=== PATIENT | male | born 1975 | race African-American/Black ===

== ENCOUNTER 2016-12-29 13:56 | Observation (INO) | payer OTHER ==
[2016-12-29] MEDS ORDERED: MECLIZINE 12.5 MG TAB PO STA (16:00)
[2016-12-29] MEDS ORDERED: LABETALOL SYRINGE 5 MG/ML IVP STA (16:02)
--- NOTE | 2016-12-29 16:09 | ED ---
Dizziness HPI - General Chief Complaint: Dizziness Stated Complaint: Dizzy/Vomiting Time Seen by Provider: 12/29/16 15:43 Source: patient, RN notes reviewed Mode of arrival: wheelchair Limitations: no limitations - History of Present Illness Initial Comments: Patient is a 41-year-old male presents to the emergency room for evaluation of dizziness. Patient states he's been feeling slightly dizzy over the past few days. Patient states today he was on his way to the airport to go to [place] and began feeling increasingly lightheaded and dizzy. Patient states every time he stands up he feels like he is going to fall over. Patient denies any history of dizziness. Patient states he gets occasional chest pain and shortness of breath. Patient denies trouble breathing. Patient denies changes in vision. Patient denies ringing in ears. Patient denies headache. Patient denies neck pain. Patient denies recent head trauma or falls. Patient denies any fevers or chills. Patient does state he is having some sinus congestion. Patient denies abdominal pain. Patient states that he feels nauseous when he is dizzy. Patient denies current nausea. Patient also states he has a history of high blood pressure. Patient states he does not take his blood pressure medication every day. - Related Data Home Medications Medication Instructions Recorded Confirmed No Known Home Medications [No 12/29/16 12/29/16 Known Home Medications] Allergies Allergy/AdvReac Type Severity Reaction Status Date / Time No Known Allergies Allergy Verified 12/29/16 16:49 Review of Systems ROS Statement: Those systems with pertinent positive or pertinent negative responses have been documented in the HPI. ROS Other: All systems not noted in ROS Statement are negative. Past Medical History Past Medical History: Hypertension Additional Past Medical History / Comment(s): back pain History of Any Multi-Drug Resistant Organisms: None Reported Past Surgical History: No Surgical Hx Reported Past Psychological History: No Psychological Hx Reported Smoking Status: Current every day smoker Past Alcohol Use History: None Reported Past Drug Use History: Marijuana General Exam - General Exam Comments Initial Comments: Sitting in exam room in no acute distress. Limitations: no limitations General appearance: alert, in no apparent distress Head exam: Present: atraumatic, normocephalic, normal inspection Eye exam: Present: normal appearance ENT exam: Present: normal exam Neck exam: Present: normal inspection Respiratory exam: Present: normal lung sounds bilaterally. Absent: respiratory distress Cardiovascular Exam: Present: regular rate, normal rhythm, normal heart sounds Extremities exam: Present: normal inspection, full ROM, normal capillary refill Back exam: Present: normal inspection Neurological exam: Present: alert, oriented X3, CN II-XII intact, normal gait Psychiatric exam: Present: normal affect, normal mood Skin exam: Present: warm, dry, intact, normal color. Absent: rash Course Vital Signs 12/29/16 12/29/16 12/29/16 14:17 17:03 17:16 Temperature 98.1 F Pulse Rate 90 83 Pulse Rate [ 88 Sitting] Pulse Rate [ 96 Standing] Pulse Rate [ 93 Supine] Respiratory 20 16 Rate Blood Pressure 178/113 169/89 Blood Pressure 186/103 [Sitting] Blood Pressure 229/116 [Standing] Blood Pressure 192/98 [Supine] O2 Sat by Pulse 98 97 Oximetry 12/29/16 12/29/16 17:55 18:23 Temperature Pulse Rate 82 91 Pulse Rate [ Sitting] Pulse Rate [ Standing] Pulse Rate [ Supine] Respiratory 16 15 Rate Blood Pressure 192/82 190/95 Blood Pressure [Sitting] Blood Pressure [Standing] Blood Pressure [Supine] O2 Sat by Pulse 100 98 Oximetry EKG Findings - EKG Comments: EKG Findings:: Normal sinus rhythm, ventricular rate 81 bpm, OH interval 174 ms , QRS duration 90 ms, QT/QTc 384/446, septal infarct Medical Decision Making - Medical Decision Making Patient is a 41-year-old male presents to emergency room for evaluation of dizziness and hypertension. EKG shows changes from EKG on 09/03/2014. EKG shows evidence for possible septal infarct, age undetermined. Initial troponin negative. Patient will be admitted for further evaluation and serial troponins. Patient started on heparin. Case discussed with Dr. Rivera. Dr. Rivera discussed case with Jennifer LAWLER Pharmaceutical Worker who agreed to admit for Dr. Philippe. Patient will also have consult with cardiology. - Lab Data Result diagrams: 12/29/16 16:52 12/29/16 16:52 Lab Results 12/29/16 12/29/16 12/29/16 Range/Units 16:43 16:52 16:52 WBC 6.9 (3.8-10.6) k/uL RBC 5.15 (4.30-5.90) m/uL Hgb 14.9 (13.0-17.5) gm/dL Hct 46.0 (39.0-53.0) % MCV 89.3 (80.0-100.0) fL MCH 29.0 (25.0-35.0) pg MCHC 32.4 (31.0-37.0) g/dL RDW 13.0 (11.5-15.5) % Plt Count 220 (150-450) k/uL Neutrophils % 67 % Lymphocytes % 26 % Monocytes % 4 % Eosinophils % 1 % Basophils % 0 % Neutrophils # 4.6 (1.3-7.7) k/uL Lymphocytes # 1.8 (1.0-4.8) k/uL Monocytes # 0.3 (0-1.0) k/uL Eosinophils # 0.0 (0-0.7) k/uL Basophils # 0.0 (0-0.2) k/uL PT (9.0-12.0) sec INR (<1.1) APTT (22.0-30.0) sec Sodium 144 (137-145) mmol/L Potassium 4.3 (3.5-5.1) mmol/L Chloride 104 (98-107) mmol/L Carbon Dioxide 27 (22-30) mmol/L Anion Gap 13 mmol/L BUN 13 (9-20) mg/dL Creatinine 0.90 (0.66-1.25) mg/dL Est GFR (MDRD) Af Amer >60 (>60 ml/min/1.73 sqM) Est GFR (MDRD) Non-Af >60 (>60 ml/min/1.73 sqM) Glucose 125 H (74-99) mg/dL POC Glucose (mg/dL) 125 H (75-99) mg/dL POC Glu Proposal Specialist ID [place] Calcium 9.4 (8.4-10.2) mg/dL Total Bilirubin 0.6 (0.2-1.3) mg/dL AST 33 (17-59) U/L ALT 45 (21-72) U/L Alkaline Phosphatase 90 (38-126) U/L Total Creatine Kinase (55-170) U/L CK-MB (CK-2) (0.0-2.4) ng/mL CK-MB (CK-2) Rel Index Troponin I (0.000-0.034) ng/mL Total Protein 8.7 H (6.3-8.2) g/dL Albumin 4.2 (3.5-5.0) g/dL Urine Color Urine Appearance (Clear) Urine pH (5.0-8.0) Ur Specific [place] (1.001-1.035) Urine Protein (Negative) Urine Glucose (UA) (Negative) Urine Ketones (Negative) Urine Blood (Negative) Urine Nitrate (Negative) Urine Bilirubin (Negative) Urine Urobilinogen (<2.0) mg/dL Ur Leukocyte Esterase (Negative) Urine RBC (0-5) /hpf Urine WBC (0-5) /hpf Urine Mucus (None) /hpf 12/29/16 12/29/16 12/29/16 Range/Units 16:52 16:52 18:21 WBC (3.8-10.6) k/uL RBC (4.30-5.90) m/uL Hgb (13.0-17.5) gm/dL Hct (39.0-53.0) % MCV (80.0-100.0) fL MCH (25.0-35.0) pg MCHC (31.0-37.0) g/dL RDW (11.5-15.5) % Plt Count (150-450) k/uL Neutrophils % % Lymphocytes % % Monocytes % % Eosinophils % % Basophils % % Neutrophils # (1.3-7.7) k/uL Lymphocytes # (1.0-4.8) k/uL Monocytes # (0-1.0) k/uL Eosinophils # (0-0.7) k/uL Basophils # (0-0.2) k/uL PT 10.3 (9.0-12.0) sec INR 1.0 (<1.1) APTT (22.0-30.0) sec Sodium (137-145) mmol/L Potassium (3.5-5.1) mmol/L Chloride (98-107) mmol/L Carbon Dioxide (22-30) mmol/L Anion Gap mmol/L BUN (9-20) mg/dL Creatinine (0.66-1.25) mg/dL Est GFR (MDRD) Af Amer (>60 ml/min/1.73 sqM) Est GFR (MDRD) Non-Af (>60 ml/min/1.73 sqM) Glucose (74-99) mg/dL POC Glucose (mg/dL) (75-99) mg/dL POC Glu Proposal Specialist ID Calcium (8.4-10.2) mg/dL Total Bilirubin (0.2-1.3) mg/dL AST (17-59) U/L ALT (21-72) U/L Alkaline Phosphatase (38-126) U/L Total Creatine Kinase 526 H (55-170) U/L CK-MB (CK-2) 2.5 H* (0.0-2.4) ng/mL CK-MB (CK-2) Rel Index 0.5 Troponin I <0.012 (0.000-0.034) ng/mL Total Protein (6.3-8.2) g/dL Albumin (3.5-5.0) g/dL Urine Color Yellow Urine Appearance Clear (Clear) Urine pH 6.5 (5.0-8.0) Ur Specific [place] 1.017 (1.001-1.035) Urine Protein 1+ H (Negative) Urine Glucose (UA) Negative (Negative) Urine Ketones Negative (Negative) Urine Blood Negative (Negative) Urine Nitrate Negative (Negative) Urine Bilirubin Negative (Negative) Urine Urobilinogen <2.0 (<2.0) mg/dL Ur Leukocyte Esterase Negative (Negative) Urine RBC 1 (0-5) /hpf Urine WBC 1 (0-5) /hpf Urine Mucus Rare H (None) /hpf 12/29/16 12/29/16 Range/Units 18:26 18:30 WBC (3.8-10.6) k/uL RBC (4.30-5.90) m/uL Hgb (13.0-17.5) gm/dL Hct (39.0-53.0) % MCV (80.0-100.0) fL MCH (25.0-35.0) pg MCHC (31.0-37.0) g/dL RDW (11.5-15.5) % Plt Count (150-450) k/uL Neutrophils % % Lymphocytes % % Monocytes % % Eosinophils % % Basophils % % Neutrophils # (1.3-7.7) k/uL Lymphocytes # (1.0-4.8) k/uL Monocytes # (0-1.0) k/uL Eosinophils # (0-0.7) k/uL Basophils # (0-0.2) k/uL PT (9.0-12.0) sec INR (<1.1) APTT 22.4 (22.0-30.0) sec Sodium (137-145) mmol/L Potassium (3.5-5.1) mmol/L Chloride (98-107) mmol/L Carbon Dioxide (22-30) mmol/L Anion Gap mmol/L BUN (9-20) mg/dL Creatinine (0.66-1.25) mg/dL Est GFR (MDRD) Af Amer (>60 ml/min/1.73 sqM) Est GFR (MDRD) Non-Af (>60 ml/min/1.73 sqM) Glucose (74-99) mg/dL POC Glucose (mg/dL) (75-99) mg/dL POC Glu Proposal Specialist ID Calcium (8.4-10.2) mg/dL Total Bilirubin (0.2-1.3) mg/dL AST (17-59) U/L ALT (21-72) U/L Alkaline Phosphatase (38-126) U/L Total Creatine Kinase 540 H (55-170) U/L CK-MB (CK-2) 3.0 H* (0.0-2.4) ng/mL CK-MB (CK-2) Rel Index 0.6 Troponin I <0.012 (0.000-0.034) ng/mL Total Protein (6.3-8.2) g/dL Albumin (3.5-5.0) g/dL Urine Color Urine Appearance (Clear) Urine pH (5.0-8.0) Ur Specific [place] (1.001-1.035) Urine Protein (Negative) Urine Glucose (UA) (Negative) Urine Ketones (Negative) Urine Blood (Negative) Urine Nitrate (Negative) Urine Bilirubin (Negative) Urine Urobilinogen (<2.0) mg/dL Ur Leukocyte Esterase (Negative) Urine RBC (0-5) /hpf Urine WBC (0-5) /hpf Urine Mucus (None) /hpf Disposition Clinical Impression: Dizziness, Acute electrocardiogram changes, Uncontrolled hypertension Disposition: ADMITTED IP TO THIS [facility] Condition: Stable Decision Date: 12/29/16
[2016-12-29 16:44] LABS: Glucose,Whole Blood 125 mg/dL (75-99)
[2016-12-29] MEDS ORDERED: hydrALAZINE HCL 20 MG/ML 1 ML VIAL IVP STA (17:02)
[2016-12-29 17:05] LABS: Basophils % (A) 0 %; CH 29.7; CHCM 33.5; Eosinophils % (A) 1 %; HDW 2.59; HGB 14.9 gm/dL (13.0-17.5); Luc # (Auto) 0.22; Luc % (Auto) 3; Lymphocytes # (A) 1.8 k/uL (1.0-4.8); Lymphocytes % (A) 26 %; MCHC 32.4 g/dL (31.0-37.0); MCV 89.3 fL (80.0-100.0); Mean Platelet Volume 7.5; Monocytes # (A) 0.3 k/uL (0-1.0); Monocytes % (A) 4 %; Neutrophils # (A) 4.6 k/uL (1.3-7.7); Neutrophils % (A) 67 %; RBC 5.15 m/uL (4.30-5.90); WBC 6.9 k/uL (3.8-10.6); WBC (Perox) 6.59
[2016-12-29 17:08] LABS: Prothrombin Time 10.3 sec (9.0-12.0)
[2016-12-29 17:10] LABS: ALT 45 U/L (21-72); AST 33 U/L (17-59); Alkaline Phosphatase 90 U/L (38-126); Anion Gap 13 mmol/L; Blood Urea Nitrogen 13 mg/dL (9-20); Calcium 9.4 mg/dL (8.4-10.2); Carbon Dioxide 27 mmol/L (22-30); Chloride 104 mmol/L (98-107); Glucose 125 mg/dL (74-99); Non-African American GFR(MDRD) >60 (>60 ml/min/1.73 sqM); Potassium 4.3 mmol/L (3.5-5.1); Sodium 144 mmol/L (137-145); Total Bilirubin 0.6 mg/dL (0.2-1.3); Total Protein 8.7 g/dL (6.3-8.2)
[2016-12-29 17:28] LABS: Creatine Kinase 526 U/L (55-170)
[2016-12-29 17:41] LABS: Troponin I <0.012 ng/mL (0.000-0.034)
[2016-12-29 17:49] LABS: Creatine Kinase MB 2.5 ng/mL (0.0-2.4)
[2016-12-29] MEDS ORDERED: HEPARIN SODIUM,PORCINE 5,000 UNIT/ML 1 ML VIAL IV ONE (18:10)
[2016-12-29] MEDS ORDERED: NITROGLYCERIN SL TABS 0.4 MG TAB SUBLINGUAL PRN (18:10)
[2016-12-29] MEDS ORDERED: ACETAMINOPHEN TAB 325 MG TAB PO PRN (18:10)
[2016-12-29] MEDS ORDERED: MORPHINE SULFATE 4 MG/ML SYRINGE IV PRN (18:10)
[2016-12-29] MEDS ORDERED: HEPARIN SODIUM,PORCINE/D5W PMX 25,000 UNIT in DEXTROSE/WATER 1 500ML.BAG IV SCH (18:15)
[2016-12-29 18:38] LABS: Appearance,Urine Clear (Clear); Bilirubin,Urine Negative (Negative); Glucose,Urine (UA) Negative (Negative); Ketones,Urine Negative (Negative); Leukocyte Esterase,Urine Negative (Negative); Mucus,Urine Rare /hpf; Nitrite,Urine Negative (Negative); PH, Urine 6.5 (5.0-8.0); Particle Count 1136; Protein,Urine 1+ (Negative); RBC,Urine 1 /hpf (0-5); Specific Gravity,Urine 1.017 (1.001-1.035); UA Billing (MACRO vs. MICRO) MICRO; Urobilinogen,Urine <2.0 mg/dL (<2.0); WBC,Urine 1 /hpf (0-5)
[2016-12-29 18:59] LABS: Creatine Kinase 540 U/L (55-170)
[2016-12-29 19:13] LABS: Troponin I <0.012 ng/mL (0.000-0.034)
[2016-12-29] MEDS ORDERED: LORazepam 2 MG/ML SYRINGE IV STA (19:23)
--- NOTE | 2016-12-29 19:52 | XR ---
EXAMINATION TYPE: XR chest 2V DATE OF EXAM: 12/29/2016 7:49 PM COMPARISON: 04/16/2015 HISTORY: Dizziness and nausea TECHNIQUE: Frontal and lateral views of the chest are obtained. FINDINGS: Heart and mediastinum are normal. Lungs are clear of consolidation. There are no hilar mas ses. Costophrenic angles are clear. There are chest leads. Bony thorax is intact. IMPRESSION: No active cardiopulmonary disease. No change.
[2016-12-29] MEDS ORDERED: ENALAPRILAT 1.25 MG/ML 1 ML VIAL IVP STA (22:37)
[2016-12-29] MEDS: ENALAPRILAT 1.25 MG/ML 1 ML VIAL IVP PRN (22:43)
[2016-12-30 00:37] VITALS: BMI 45.3
[2016-12-30 00:54] LABS: Creatine Kinase 538 U/L (55-170)
[2016-12-30 01:08] LABS: Troponin I <0.012 ng/mL (0.000-0.034)
[2016-12-30 01:09] LABS: Creatine Kinase MB 4.8 ng/mL (0.0-2.4)
[2016-12-30] MEDS ORDERED: HEPARIN SODIUM,PORCINE 5,000 UNIT/ML 1 ML VIAL IV PRN (01:32)
[2016-12-30] MEDS: ENALAPRILAT 1.25 MG/ML 1 ML VIAL IVP PRN (04:25)
[2016-12-30 06:24] LABS: Mean Platelet Volume 7.4
[2016-12-30 06:45] LABS: Cholesterol 135 mg/dL (<200); HDL Cholesterol 39 mg/dL (40-60); Triglycerides 116 mg/dL (<150)
[2016-12-30] MEDS ORDERED: ASPIRIN 325 MG TAB PO SCH (09:00)
[2016-12-30] MEDS ORDERED: ATENOLOL 50 MG TAB PO SCH (10:00)
[2016-12-30] MEDS ORDERED: amLODIPine 5 MG TAB PO SCH (10:00)
--- NOTE | 2016-12-30 10:31 | CONS ---
DATE OF CONSULTATION: CHIEF COMPLAINT: Dizziness and uncontrolled hypertension. HISTORY OF PRESENT ILLNESS: Glen is a 41-year-old gentleman with history of hypertension, who has not been taking any medications due to lack of insurance and comes in complaining of dizziness and severe uncontrolled hypertension. He had ST-T wave changes on the EKG primarily secondary to uncontrolled hypertension. Since being admitted he is doing well and ruled out for myocardial infarction. At the time of my evaluation this morning, patient is much better and is eager to go home. Past medical history is significant for hypertension. MEDICATIONS: None. ALLERGIES: None. Family history is negative for premature coronary artery disease. SOCIAL HISTORY: Significant for smoking. There is no history of ETOH abuse, or drug abuse. REVIEW OF SYSTEMS: HEENT: Unremarkable. CARDIAC: As described above. RESPIRATORY: Negative. GI: Negative. ALLERGY/IMMUNOLOGY: Negative. GENITOURINARY: Negative. SKIN: Negative. MUSCULOSKELETAL: Negative. ENDOCRINE: Negative. DERM: Negative. CONSTITUTIONAL: Negative. The rest of the system review is not relevant. On exam, comfortable at rest. Afebrile. Heart rate is 90 beats per minute, blood pressure is 178/94, respiratory rate is 18. There is no jugular venous distention. Carotid upstroke is normal. There is no bruit. Chest is clear to auscultation and percussion. Heart exam reveals first and second heart sounds. An S4 is heard. ABDOMEN: Soft. Exam of the extremities did not reveal edema. Peripheral pulses are felt. EKG shows sinus rhythm with nonspecific ST-T wave changes. Three sets of cardiac enzymes are negative. Hemoglobin is 14.9, platelet count is 220, creatinine is 0.9. Potassium is 4.3. ASSESSMENT: 1. Severe uncontrolled hypertension. 2. Dizziness. 3. Abnormal EKG. PLAN: The patient is doing well and we will do an echocardiogram on him, start him on Tenormin 50 mg daily, Norvasc 10 mg daily and if necessary on Lisinopril 10 mg daily. We will ambulate him and we should be able to discharge him home today and I can optimize his antihypertensives as outpatient.
[2016-12-30 11:02] VITALS: BP 141/7; PULSE 81; RESP 16; TEMP 97.9
--- NOTE | 2016-12-30 12:00 | ECHOF ---
Referral Reason:ekg changes MEASUREMENTS -------- HEIGHT: 193.0 cm WEIGHT: 169.2 kg BP: 178/94 RVIDd: 3.1 cm (< 3.3) IVSd: 1.4 cm (0.6 - 1.1) LVIDd: 5.4 cm (3.9 - 5.3) LVPWd: 1.5 cm (0.6 - 1.1) IVSs: 2.4 cm LVIDs: 3.3 cm LVPWs: 2.1 cm LA Diam: 3.3 cm (2.7 - 3.8) LAESV Index (A-L): 20.39 ml/m Ao Diam: 3.5 cm (2.0 - 3.7) AV Cusp: 2.4 cm (1.5 - 2.6) LA Diam: 3.2 cm (2.7 - 3.8) MV EXCURSION: 17.180 mm (> 18.000) MV EF SLOPE: 106 mm/s (70 - 150) EPSS: 0.3 cm MV E Americo: 0.63 m/s MV DecT: 142 ms MV A Americo: 0.94 m/s MV E/A Ratio: 0.67 FINDINGS -------- Sinus rhythm. This was a technically good study. There is moderate concentric left ventricular hypertrophy. Overall left ventricular systolic function is low-normal with, an EF between 50 - 55 %. Basal inferior LV wall motion is hypokinetic. Basal inferoseptal LV wall motion is hypokinetic. The right ventricle is normal in size. Normal LA size by volume 22+/-6 ml/m2. The right atrium is normal in size. The aortic valve is trileaflet and appears structurally normal. The mitral valve leaflets are mildly thickened. Mild mitral annular calcification present. Trace tricuspid regurgitation present. Pulmonic valve appears structurally normal. The aortic root size is normal. The inferior vena cava is mildly dilated. There is no pericardial effusion. CONCLUSIONS -------- 1. Sinus rhythm. 2. The aortic valve is trileaflet and appears structurally normal. 3. The mitral valve leaflets are mildly thickened. 4. Mild mitral annular calcification present. 5. Trace tricuspid regurgitation present. 6. Pulmonic valve appears structurally normal. 7. The aortic root size is normal. 8. The inferior vena cava is mildly dilated. 9. There is no pericardial effusion. 10. This was a technically good study. 11. There is moderate concentric left ventricular hypertrophy. 12. Overall left ventricular systolic function is low-normal with, an EF between 50 - 55 %. 13. Basal inferior LV wall motion is hypokinetic. 14. Basal inferoseptal LV wall motion is hypokinetic. 15. The right ventricle is normal in size. 16. Normal LA size by volume 22+/-6 ml/m2. 17. The right atrium is normal in size. TRACK EQUIPMENT OPERATOR: Jeyson Almaraz RDCS
--- NOTE | 2016-12-30 13:47 | HP ---
DATE OF ADMISSION: 12/29/2016 CHIEF COMPLAINT: Dizziness as well as hypertension. HISTORY OF PRESENT ILLNESS: This 41-year-old gentleman with a past medical history of multiple medical problems including hypertension, history of back pain, history of DJD, history of nicotine dependence, history of THC not being followed by any primary care physician in the outpatient setting was complaining of severe dizziness. The patient apparently uses Q-tips in the ear and the patient was severe dizzy yesterday and came to [facility] and admitted for further evaluation and treatment. The patient apparently was on his way to the airport to go to [place]. The patient was feeling some lightheaded also. The blood pressure was found to be elevated on admission up to 178/113 and 129/116. There is no history of fever, rigors or chills. No history of headache, loss of consciousness or seizures. CTA changes also noted. PAST MEDICAL HISTORY: History of hypertension, history of back pain, degenerative joint disease. Medications prior to admission include: None. ALLERGIES: None. FAMILY HISTORY: History of breast cancer in the family. SOCIAL HISTORY: Previous history of smoking. History of THC. REVIEW OF SYSTEMS: ENT: Mentioned earlier. CARDIOVASCULAR: no angina or palpitations. RESPIRATORY: No cough. GI: As mentioned earlier. : No dysuria. Nervous system: No numbness or weakness. ALLERGY/IMMUNOLOGY: No asthma or hayfever. MUSCULOSKELETAL: As mentioned earlier. Hematology/oncology: No history of anemia. ENDOCRINE: No history of diabetes mellitus or hypothyroidism. CONSTITUTIONAL: As mentioned earlier. DERMATOLOGY: Negative. Rheumatology: Negative. PSYCHIATRY: As mentioned earlier. PHYSICAL EXAMINATION: The patient is alert and oriented x3. Pulse is 88, blood pressure on admission was 229/116, respirations 18, temperature 98.1, pulse ox 98% on room air. HEENT: Conjunctivae normal. Oral mucosa moist. NECK: No jugular venous distention. No carotid bruit. No lymph node enlargement. CARDIOVASCULAR: S1, S2 muffled. No S3, no S4. RESPIRATORY: Breath sounds diminished at the bases. A few scattered rhonchi, no crackles. Bronchial breath sounds. ABDOMEN: Soft, nontender. No mass palpable. Legs: No edema. No swelling. CENTRAL NERVOUS SYSTEM: Higher functions as mentioned earlier. Moves all 4 limbs. No focal motor or sensory deficits. LYMPHATICS: No lymph nodes palpable in the neck, axillae or groin. SKIN: No ulcer, rash or bleeding. LABS: Glucose 125, CK 526 and HDL is 39, urine proteins 1+. ASSESSMENT: 1. Dizziness for evaluation possibly BPV. 2. Accelerated hypertension, uncontrolled hypertension. 3. Increased creatinine kinase with mild rhabdomyolysis. 4. Increased random blood sugar. 5. Obesity with a body mass index of 45.4. 6. History of back pain and degenerative joint disease. 7. History of nicotine dependence. 8. History of THC. RECOMMENDATIONS AND DISCUSSION: In this 41-year-old gentleman who presented with multiple complex medical issues, we will ( ), we will obtain cardiology consultation, rule out myocardial infarction, symptomatic treatment, monitor blood pressure closely, possible stress test as an outpatient. Guarded prognosis because of multiple complex medical issues. Discussed with the patient who understands and agrees. Further recommendations to follow.
[2016-12-31] MEDS ORDERED: ASPIRIN 81 MG CHEW PO SCH (09:00)
--- NOTE | 2016-12-31 09:05 | DS ---
DATE OF ADMISSION: 12/29/2016 DATE OF DISCHARGE: 12/30/2016 FINAL DIAGNOSES: 1. Accelerated hypertension improved. 2. Dizziness improved. 3. Increased CT with mild rhabdomyolysis. 4. Increased random blood sugar. 5. BMI 45.4 obesity. 6. History of hypertension. 7. History of back pain degenerative joint disease. 8. History of nicotine dependence. 9. History of THC. DISCHARGE DISPOSITION: The patient will be discharged in stable condition with guarded prognosis. Cardiology cleared the patient for discharge. HISTORY OF PRESENT ILLNESS: This 41-year-old gentleman with a past medical history of multiple medical problems admitted with dizziness, hypertension and multiple medical issues. Treated symptomatically. Cardiology saw the patient. Recommended outpatient follow-up. On exam vital signs are stable. CARDIOVASCULAR: S1, S2. ABDOMEN: Soft. Nervous system: No focal deficits. The patient is extremely keen on going home as well. DISCHARGE ADVICE AND MEDICATIONS: 1. Diet is cardiac. No added salt. 2. Activity limited until follow-up. 3. Follow-up with Dr. Saunders 2 to 3 days. 4. Follow-up with Dr. Mata as advised and for possible outpatient stress test. 5. Ecotrin 81 mg p.o. daily. 6. Tenormin 50 mg p.o. daily. 7. Norvasc 5 mg p.o. daily.
== END 2016-12-30 13:15 | disposition home or self-care (01) ==
LOC: EC 13:56 → INTOOBSV 17:21 → 6SEL 17:21
PROVIDERS: ADMIT Hospitalist; ATTEND Hospitalist
DX: I10 Essential (primary) hypertension (principal); M62.82 Rhabdomyolysis; E66.9 Obesity, unspecified; F17.200 Nicotine dependence, unspecified, uncomplicated; M19.90 Unspecified osteoarthritis, unspecified site; R73.9 Hyperglycemia, unspecified; R09.81 Nasal congestion; Z68.42 Body mass index [BMI] 45.0-49.9, adult; Z59.6 Low income; R94.31 Abnormal electrocardiogram [ECG] [EKG]
CPT/HCPCS: 99285; 96376; 96365; 96366; 96375; 36415; 93005; 93306; 80061; 80053; 82550 ×2; 82553 ×2; 84484 ×2; 85025; 85049; 85610; 85730 ×2; 81001; 71020; G0378 ×2; J2060; J0360; J1644 ×2

== ENCOUNTER 2017-05-05 03:51 | Emergency (ER) | payer OTHER ==
--- NOTE | 2017-05-05 04:15 | ED ---
Extremity Problem HPI - General Chief complaint: Extremity Problem,Nontraumatic Stated complaint: Swelling in the Feet/legs Time Seen by Provider: 05/05/17 04:00 Source: patient, RN notes reviewed Mode of arrival: ambulatory Limitations: no limitations - History of Present Illness Initial comments: Is a 41-year-old male with a history of hypertension and evaluation for EKG changes presents with complaints of 1-2 weeks bilateral lower extremity swelling and some discomfort. States is been up his been down he's had different medications he recently had his hydrochlorothiazide dose increased. He denies any shortness of breath chest pain fevers chills sweats or other symptoms. He does relate the problems not starting until he started the medications he is currently on. MD Complaint: extremity swelling - Related Data Previous Rx's Medication Instructions Recorded Aspirin 81 mg PO DAILY chew 12/30/16 Atenolol [Tenormin] 50 mg PO DAILY #30 tab 12/30/16 Meclizine [Antivert] 12.5 mg PO Q8HR PRN #10 tablet 12/30/16 Furosemide [Lasix] 20 mg PO DAILY #7 tab 05/05/17 Allergies Allergy/AdvReac Type Severity Reaction Status Date / Time No Known Allergies Allergy Verified 05/05/17 04:10 Review of Systems ROS Statement: Those systems with pertinent positive or pertinent negative responses have been documented in the HPI. ROS Other: All systems not noted in ROS Statement are negative. Past Medical History Past Medical History: Hypertension Additional Past Medical History / Comment(s): back pain - chronic pain, bulging discs History of Any Multi-Drug Resistant Organisms: None Reported Past Surgical History: No Surgical Hx Reported Past Psychological History: No Psychological Hx Reported Smoking Status: Former smoker Past Alcohol Use History: None Reported Past Drug Use History: Marijuana - Past Family History Mother Family Medical History: Cancer Additional Family Medical History / Comment(s): breast Father Family Medical History: Cancer Additional Family Medical History / Comment(s): lung General Exam - General Exam Comments Initial Comments: This is a well-developed well-nourished awake alert oriented 3 male Limitations: no limitations General appearance: alert, in no apparent distress Head exam: Present: atraumatic, normocephalic, normal inspection Eye exam: Present: normal appearance, PERRL, EOMI. Absent: scleral icterus, conjunctival injection, periorbital swelling ENT exam: Present: normal exam, mucous membranes moist Neck exam: Present: normal inspection. Absent: tenderness, meningismus, lymphadenopathy Respiratory exam: Present: normal lung sounds bilaterally. Absent: respiratory distress, wheezes, rales, rhonchi, stridor Cardiovascular Exam: Present: regular rate, normal rhythm, normal heart sounds. Absent: systolic murmur, diastolic murmur, rubs, gallop, clicks GI/Abdominal exam: Present: soft, normal bowel sounds. Absent: distended, tenderness, guarding, rebound, rigid Extremities exam: Present: normal inspection, full ROM, normal capillary refill , pedal edema (Bilateral pedal edema up to the knees no palpable cords or calf tenderness). Absent: tenderness, joint swelling, calf tenderness Back exam: Present: normal inspection Neurological exam: Present: alert, oriented X3, CN II-XII intact Psychiatric exam: Present: normal affect, normal mood Skin exam: Present: warm, dry, intact, normal color. Absent: rash Course Vital Signs 05/05/17 04:00 Temperature 97.8 F Pulse Rate 88 Respiratory 20 Rate Blood Pressure 170/96 O2 Sat by Pulse 96 Oximetry Medical Decision Making - Medical Decision Making I did discuss the findings with the patient he is been on the higher dose of hydrochlorothiazide for month and neutrophils without much improvement. After discussion with the patient we will try switching to Lasix for about a week to see how that works is a follow-up with Dr. Mcintosh and return when necessary - Lab Data Result diagrams: 05/05/17 04:30 05/05/17 04:30 Lab Results 05/05/17 05/05/17 05/05/17 Range/Units 04:30 04:30 04:30 WBC 7.5 (3.8-10.6) k/uL RBC 4.59 (4.30-5.90) m/uL Hgb 13.8 (13.0-17.5) gm/dL Hct 41.7 (39.0-53.0) % MCV 90.7 (80.0-100.0) fL MCH 30.1 (25.0-35.0) pg MCHC 33.2 (31.0-37.0) g/dL RDW 13.2 (11.5-15.5) % Plt Count 218 (150-450) k/uL Neutrophils % 46 % Lymphocytes % 41 % Monocytes % 6 % Eosinophils % 3 % Basophils % 1 % Neutrophils # 3.5 (1.3-7.7) k/uL Lymphocytes # 3.1 (1.0-4.8) k/uL Monocytes # 0.4 (0-1.0) k/uL Eosinophils # 0.2 (0-0.7) k/uL Basophils # 0.0 (0-0.2) k/uL D-Dimer (<0.60) mg/L FEU Sodium 141 (137-145) mmol/L Potassium 3.8 (3.5-5.1) mmol/L Chloride 104 (98-107) mmol/L Carbon Dioxide 27 (22-30) mmol/L Anion Gap 10 mmol/L BUN 15 (9-20) mg/dL Creatinine 0.97 (0.66-1.25) mg/dL Est GFR (MDRD) Af Amer >60 (>60 ml/min/1.73 sqM) Est GFR (MDRD) Non-Af >60 (>60 ml/min/1.73 sqM) Glucose 148 H (74-99) mg/dL Calcium 9.3 (8.4-10.2) mg/dL Magnesium 1.6 (1.6-2.3) mg/dL Total Bilirubin 0.5 (0.2-1.3) mg/dL AST 26 (17-59) U/L ALT 32 (21-72) U/L Alkaline Phosphatase 83 (38-126) U/L Total Creatine Kinase 446 H (55-170) U/L CK-MB (CK-2) 1.6 (0.0-2.4) ng/mL CK-MB (CK-2) Rel Index 0.4 Troponin I <0.012 (0.000-0.034) ng/mL Total Protein 8.0 (6.3-8.2) g/dL Albumin 4.0 (3.5-5.0) g/dL 05/05/17 Range/Units 04:30 WBC (3.8-10.6) k/uL RBC (4.30-5.90) m/uL Hgb (13.0-17.5) gm/dL Hct (39.0-53.0) % MCV (80.0-100.0) fL MCH (25.0-35.0) pg MCHC (31.0-37.0) g/dL RDW (11.5-15.5) % Plt Count (150-450) k/uL Neutrophils % % Lymphocytes % % Monocytes % % Eosinophils % % Basophils % % Neutrophils # (1.3-7.7) k/uL Lymphocytes # (1.0-4.8) k/uL Monocytes # (0-1.0) k/uL Eosinophils # (0-0.7) k/uL Basophils # (0-0.2) k/uL D-Dimer 0.37 (<0.60) mg/L FEU Sodium (137-145) mmol/L Potassium (3.5-5.1) mmol/L Chloride (98-107) mmol/L Carbon Dioxide (22-30) mmol/L Anion Gap mmol/L BUN (9-20) mg/dL Creatinine (0.66-1.25) mg/dL Est GFR (MDRD) Af Amer (>60 ml/min/1.73 sqM) Est GFR (MDRD) Non-Af (>60 ml/min/1.73 sqM) Glucose (74-99) mg/dL Calcium (8.4-10.2) mg/dL Magnesium (1.6-2.3) mg/dL Total Bilirubin (0.2-1.3) mg/dL AST (17-59) U/L ALT (21-72) U/L Alkaline Phosphatase (38-126) U/L Total Creatine Kinase (55-170) U/L CK-MB (CK-2) (0.0-2.4) ng/mL CK-MB (CK-2) Rel Index Troponin I (0.000-0.034) ng/mL Total Protein (6.3-8.2) g/dL Albumin (3.5-5.0) g/dL - EKG Data -: EKG Interpreted by Me EKG shows normal: sinus rhythm (Sinus rhythm rate of 80 ID interval 172 QRS 96 QT since QTC of 390/449 this is a normal-appearing EKG some artifact is present) - Radiology Data Radiology results: report reviewed (I did review the imaging and reports no acute findings.), image reviewed Disposition Clinical Impression: Peripheral edema Disposition: HOME SELF-CARE Condition: Good Instructions: Edema (ED) Prescriptions: Furosemide [Lasix] 20 mg PO DAILY #7 tab Referrals: Donald Mcintosh MD [Primary Care Provider] - 1-2 days
[2017-05-05 04:38] LABS: Basophils % (A) 1 %; CH 30.3; CHCM 33.6; Eosinophils # (A) 0.2 k/uL (0-0.7); Eosinophils % (A) 3 %; HCT 41.7 % (39.0-53.0); HDW 2.41; HGB 13.8 gm/dL (13.0-17.5); Luc % (Auto) 4; Lymphocytes # (A) 3.1 k/uL (1.0-4.8); Lymphocytes % (A) 41 %; MCH 30.1 pg (25.0-35.0); MCHC 33.2 g/dL (31.0-37.0); MCV 90.7 fL (80.0-100.0); Mean Platelet Volume 7.9; Monocytes # (A) 0.4 k/uL (0-1.0); Monocytes % (A) 6 %; Neutrophils # (A) 3.5 k/uL (1.3-7.7); Neutrophils % (A) 46 %; RBC 4.59 m/uL (4.30-5.90); RDW 13.2 % (11.5-15.5); WBC 7.5 k/uL (3.8-10.6); WBC (Perox) 7.28
[2017-05-05 04:49] LABS: ALT 32 U/L (21-72); AST 26 U/L (17-59); Alkaline Phosphatase 83 U/L (38-126); Anion Gap 10 mmol/L; Blood Urea Nitrogen 15 mg/dL (9-20); Calcium 9.3 mg/dL (8.4-10.2); Carbon Dioxide 27 mmol/L (22-30); Chloride 104 mmol/L (98-107); Glucose 148 mg/dL (74-99); Magnesium 1.6 mg/dL (1.6-2.3); Non-African American GFR(MDRD) >60 (>60 ml/min/1.73 sqM); Potassium 3.8 mmol/L (3.5-5.1); Sodium 141 mmol/L (137-145); Total Bilirubin 0.5 mg/dL (0.2-1.3)
[2017-05-05 04:57] LABS: Creatine Kinase 446 U/L (55-170)
[2017-05-05 05:10] LABS: Creatine Kinase MB 1.6 ng/mL (0.0-2.4); Troponin I <0.012 ng/mL (0.000-0.034)
[2017-05-05 05:45] VITALS: BP 149/105; PULSE 81; RESP 16; TEMP 97.5
--- NOTE | 2017-05-05 05:57 | XR ---
EXAM: XR Chest, 2 Views CLINICAL HISTORY: Reason: cough TECHNIQUE: Frontal and lateral views of the chest. COMPARISON: 12/29/16 FINDINGS: Lungs: Stable. No consolidation. Pleural space: Stable. No effusion or pneumothorax. Heart: Stable. No cardiomegaly. Mediastinum: Stable and within normal limits. Bones/joints: There are again degenerative changes without acute osseous abnormality. Tubes, lines and devices: There are again EKG wires and leads overlying the chest. IMPRESSION: No new acute intrathoracic abnormality is seen.
== END 2017-05-05 05:46 | disposition home or self-care (01) ==
LOC: EC 03:51
DX: R60.0 Localized edema (principal); I10 Essential (primary) hypertension; Z87.891 Personal history of nicotine dependence
CPT/HCPCS: 36415; 71020; 80053; 82550; 82553; 83735; 84484; 85025; 85379; 93005; 99284

== ENCOUNTER → 2017-05-30 | Outpatient (CLI) | payer OTHER ==
[2017-05-30 12:26] LABS: Basophils % (A) 1 %; CH 29.4; CHCM 33.3; Eosinophils # (A) 0.1 k/uL (0-0.7); Eosinophils % (A) 3 %; HCT 39.9 % (39.0-53.0); HDW 2.51; HGB 13.7 gm/dL (13.0-17.5); Luc # (Auto) 0.16; Luc % (Auto) 3; Lymphocytes # (A) 2.2 k/uL (1.0-4.8); Lymphocytes % (A) 43 %; MCH 30.4 pg (25.0-35.0); MCHC 34.3 g/dL (31.0-37.0); MCV 88.8 fL (80.0-100.0); Mean Platelet Volume 7.8; Monocytes # (A) 0.2 k/uL (0-1.0); Monocytes % (A) 5 %; Neutrophils # (A) 2.3 k/uL (1.3-7.7); Neutrophils % (A) 46 %; RDW 12.9 % (11.5-15.5); WBC 5.1 k/uL (3.8-10.6); WBC (Perox) 5.35
[2017-05-30 12:47] LABS: Appearance,Urine Clear (Clear); Bilirubin,Urine Negative (Negative); Glucose,Urine (UA) Negative (Negative); Ketones,Urine Negative (Negative); Leukocyte Esterase,Urine Negative (Negative); Nitrite,Urine Negative (Negative); PH, Urine 5.5 (5.0-8.0); Protein,Urine Trace (Negative); Specific Gravity,Urine 1.021 (1.001-1.035); UA Billing (MACRO vs. MICRO) CHEM; Urobilinogen,Urine <2.0 mg/dL (<2.0)
[2017-05-30 12:49] LABS: ALT 36 U/L (21-72); AST 29 U/L (17-59); Alkaline Phosphatase 79 U/L (38-126); Anion Gap 8 mmol/L; Blood Urea Nitrogen 11 mg/dL (9-20); Carbon Dioxide 26 mmol/L (22-30); Chloride 107 mmol/L (98-107); Creatine Kinase 623 U/L (55-170); Glucose 101 mg/dL (74-99); LDH 403 U/L (313-618); Non-African American GFR(MDRD) >60 (>60 ml/min/1.73 sqM); Potassium 3.8 mmol/L (3.5-5.1); Sodium 141 mmol/L (137-145); Total Bilirubin 0.5 mg/dL (0.2-1.3); Total Protein 7.8 g/dL (6.3-8.2)
[2017-05-30 13:39] LABS: Hepatitis C Virus IgG Ab Negative (Negative); Hepatitis C Virus IgG Index 0.11
[2017-05-30 13:50] LABS: Rheumatoid Factor, Qnt <9 IU/mL (<12)
[2017-05-30 13:51] LABS: C Reactive Protein 13.7 mg/L (<10.0)
[2017-05-30 14:32] LABS: Erythrocyte Sedimentation Rate 20 mm/hr (0-15)
[2017-05-30 14:37] LABS: Vitamin B12 840 pg/mL (239-931)
[2017-05-30 19:17] LABS: Treponemal Ab Non-Reactive (Non-Reactive)
[2017-05-30 20:12] LABS: ANA w/Reflex to Titer NEGATIVE (NEGATIVE); Tis Transglutaminase IgA Unit <0.5 AI; Tis Transglutaminase IgG Unit <0.8 U/mL
[2017-05-30 22:04] LABS: Hemoglobin A1C 6.3 % (4.2-6.1)
[2017-05-31 11:16] LABS: HLA B27 NEGATIVE; HLA B27 Comment SEEBELOW
[2017-05-31 15:35] LABS: Lyme IgG/IgM 1.6 Index; Lyme IgG/IgM Interp POSITIVE (NEGATIVE)
[2017-05-31 18:21] LABS: Vitamin D, 1, 25-Dihydroxy 75 pg/mL (20 - 79)
== END | disposition home or self-care (01) ==
LOC: LABWHC1 11:22
PROVIDERS: ATTEND Physical Medicine & Rehabilitation
DX: M51.17 Intervertebral disc disorders with radiculopathy, lumbosacral region (principal); M47.817 Spondylosis without myelopathy or radiculopathy, lumbosacral region; M54.5 Low back pain
CPT/HCPCS: 36415; 80053; 81003; 82306; 82310; 82550; 82553; 82607; 82652; 83036; 83516; 83615; 83970; 84100; 84165; 84207; 84425; 84443; 85025; 85652; 86038; 86060; 86140; 86235; 86431; 86618; 86780; 86803; 86812

== ENCOUNTER 2017-06-07 20:50 | Emergency (ER) | payer OTHER ==
[2017-06-07 21:21] VITALS: RESP 20
--- NOTE | 2017-06-07 21:28 | ED ---
General Adult HPI - General Chief complaint: Extremity Problem,Nontraumatic Stated complaint: Feet Swelling Time Seen by Provider: 06/07/17 21:09 Source: patient, RN notes reviewed, old records reviewed Mode of arrival: ambulatory Limitations: no limitations - History of Present Illness Initial comments: 42-year-old male with history hypertension, sleep apnea, and chronic back pain presents with chief complaint of bilateral lower extremity swelling. His had this for approximately 6 months. His been seen both in the emergency department and by his primary care physician. He has had some recent medication changes, including being switched from hydrochlorothiazide to Lasix. He denies chest pain shortness of breath. Patient states he does sleep upright in his car, he is currently homeless, he wears his CPAP machine with a car adapter. Current medications for blood pressure include labetalol, 40 mg of Lasix daily, and Benzapril. - Related Data Home Medications Medication Instructions Recorded Confirmed Benazepril HCl 40 mg PO DAILY 06/07/17 06/07/17 Cyclobenzaprine [Flexeril] 10 mg PO HS PRN 06/07/17 06/07/17 Ergocalciferol (Vitamin D2) 50,000 unit PO MO 06/07/17 06/07/17 [Vitamin D2] Furosemide [Lasix] 40 mg PO DAILY 06/07/17 06/07/17 Gabapentin [Neurontin] 300 mg PO TID 06/07/17 06/07/17 HYDROcodone/APAP 5-325MG [[place] 1 tab PO DAILY PRN 06/07/17 06/07/17 5-325] Labetalol [Trandate] 200 mg PO DAILY 06/07/17 06/07/17 Meclizine [Antivert] 12.5 mg PO QID PRN 06/07/17 06/07/17 Potassium Chloride [Klor-Con 10 meq PO DAILY 06/07/17 06/07/17 Sprinkle] Allergies Allergy/AdvReac Type Severity Reaction Status Date / Time No Known Allergies Allergy Verified 06/07/17 21:02 Review of Systems ROS Statement: Those systems with pertinent positive or pertinent negative responses have been documented in the HPI. ROS Other: All systems not noted in ROS Statement are negative. Past Medical History Past Medical History: Hypertension Additional Past Medical History / Comment(s): back pain - chronic pain, bulging discs History of Any Multi-Drug Resistant Organisms: None Reported Past Surgical History: No Surgical Hx Reported Past Psychological History: No Psychological Hx Reported Smoking Status: Former smoker Past Alcohol Use History: None Reported Past Drug Use History: Marijuana - Past Family History Mother Family Medical History: Cancer Additional Family Medical History / Comment(s): breast Father Family Medical History: Cancer Additional Family Medical History / Comment(s): lung General Exam Limitations: no limitations General appearance: alert, in no apparent distress Head exam: Present: atraumatic, normocephalic Eye exam: Present: normal appearance, PERRL ENT exam: Present: normal exam, mucous membranes moist Neck exam: Present: normal inspection, full ROM. Absent: tenderness Respiratory exam: Present: normal lung sounds bilaterally. Absent: respiratory distress, rales Cardiovascular Exam: Present: regular rate, normal rhythm GI/Abdominal exam: Present: soft, other (Obese). Absent: distended, tenderness Extremities exam: Present: pedal edema (2+ pedal edema, extends to the knee.) Back exam: Present: normal inspection, full ROM Neurological exam: Present: alert Psychiatric exam: Present: normal affect, normal mood Skin exam: Present: warm. Absent: cyanosis, diaphoretic Course Vital Signs 06/07/17 06/07/17 20:57 21:19 Temperature 98.6 F 98.6 F Pulse Rate 106 H 95 Respiratory 18 20 Rate Blood Pressure 141/97 162/83 O2 Sat by Pulse 96 98 Oximetry EKG Findings - EKG Comments: EKG Findings:: EKG shows normal sinus rhythm with ventricular rate of 92, MI interval 168, QRS duration 92, QTC is 450. There is no ST segment elevation or depression, no T-wave abnormality Medical Decision Making - Medical Decision Making 42-year-old male presenting with worsening bilateral lower extremity edema. Patient does have 2+ pitting edema. There is no respiratory distress, no complaint of shortness of breath. EKG shows normal sinus rhythm with no signs of ischemia. Patient has been recently adjusting his diuretics, switching from hydrochlorothiazide to Lasix. Dr. hendrix were obtained in the emergency department and are normal, blood counts normal, and troponin is negative. Patient is counseled on diet and exercise, as well as sleeping with his legs elevated if he is able to. He will also take an additional Lasix daily for 7 days along with his potassium supplement. He'll follow-up with his primary care physician. Diagnosis: lower extremity edema. - Lab Data Result diagrams: 06/07/17 21:25 06/07/17 21:25 Lab Results 06/07/17 06/07/17 06/07/17 Range/Units 21:25 21:25 21:25 WBC 6.9 (3.8-10.6) k/uL RBC 4.64 (4.30-5.90) m/uL Hgb 14.0 (13.0-17.5) gm/dL Hct 41.3 (39.0-53.0) % MCV 88.8 (80.0-100.0) fL MCH 30.1 (25.0-35.0) pg MCHC 33.8 (31.0-37.0) g/dL RDW 13.0 (11.5-15.5) % Plt Count 216 (150-450) k/uL Neutrophils % 46 % Lymphocytes % 45 % Monocytes % 4 % Eosinophils % 2 % Basophils % 0 % Neutrophils # 3.2 (1.3-7.7) k/uL Lymphocytes # 3.1 (1.0-4.8) k/uL Monocytes # 0.3 (0-1.0) k/uL Eosinophils # 0.2 (0-0.7) k/uL Basophils # 0.0 (0-0.2) k/uL Sodium 140 (137-145) mmol/L Potassium 3.6 (3.5-5.1) mmol/L Chloride 105 (98-107) mmol/L Carbon Dioxide 27 (22-30) mmol/L Anion Gap 8 mmol/L BUN 11 (9-20) mg/dL Creatinine 1.13 (0.66-1.25) mg/dL Est GFR (MDRD) Af Amer >60 (>60 ml/min/1.73 sqM) Est GFR (MDRD) Non-Af >60 (>60 ml/min/1.73 sqM) Glucose 107 H (74-99) mg/dL Calcium 9.2 (8.4-10.2) mg/dL Magnesium 1.9 (1.6-2.3) mg/dL Total Bilirubin 0.4 (0.2-1.3) mg/dL AST 25 (17-59) U/L ALT 37 (21-72) U/L Alkaline Phosphatase 76 (38-126) U/L Troponin I <0.012 (0.000-0.034) ng/mL Total Protein 8.3 H (6.3-8.2) g/dL Albumin 4.2 (3.5-5.0) g/dL Disposition Clinical Impression: Edema extremities Disposition: HOME SELF-CARE Condition: Good Instructions: Leg Edema (ED) Referrals: Donald Mcintosh MD [Primary Care Provider] - 1-2 days Time of Disposition: 22:19
[2017-06-07 21:34] LABS: Basophils % (A) 0 %; CH 29.8; CHCM 33.7; Eosinophils # (A) 0.2 k/uL (0-0.7); Eosinophils % (A) 2 %; HCT 41.3 % (39.0-53.0); HDW 2.49; Luc # (Auto) 0.16; Luc % (Auto) 2; Lymphocytes # (A) 3.1 k/uL (1.0-4.8); Lymphocytes % (A) 45 %; MCH 30.1 pg (25.0-35.0); MCHC 33.8 g/dL (31.0-37.0); MCV 88.8 fL (80.0-100.0); Mean Platelet Volume 8.2; Monocytes # (A) 0.3 k/uL (0-1.0); Monocytes % (A) 4 %; Neutrophils # (A) 3.2 k/uL (1.3-7.7); Neutrophils % (A) 46 %; RBC 4.64 m/uL (4.30-5.90); WBC 6.9 k/uL (3.8-10.6); WBC (Perox) 6.39
[2017-06-07 21:45] LABS: ALT 37 U/L (21-72); AST 25 U/L (17-59); Alkaline Phosphatase 76 U/L (38-126); Anion Gap 8 mmol/L; Blood Urea Nitrogen 11 mg/dL (9-20); Calcium 9.2 mg/dL (8.4-10.2); Carbon Dioxide 27 mmol/L (22-30); Chloride 105 mmol/L (98-107); Glucose 107 mg/dL (74-99); Magnesium 1.9 mg/dL (1.6-2.3); Non-African American GFR(MDRD) >60 (>60 ml/min/1.73 sqM); Potassium 3.6 mmol/L (3.5-5.1); Sodium 140 mmol/L (137-145); Total Bilirubin 0.4 mg/dL (0.2-1.3); Total Protein 8.3 g/dL (6.3-8.2)
[2017-06-07 22:31] VITALS: BP 127/70; PULSE 61; TEMP 98.3
== END 2017-06-07 22:31 | disposition home or self-care (01) ==
LOC: EC 20:50
DX: R60.0 Localized edema (principal); I10 Essential (primary) hypertension; Z59.0 Homelessness; Z79.899 Other long term (current) drug therapy; Z87.891 Personal history of nicotine dependence
CPT/HCPCS: 36415; 80053; 83735; 84484; 85025; 93005; 99284

== ENCOUNTER → 2017-11-28 | Outpatient (CLI) | payer OTHER ==
--- NOTE | 2017-11-29 09:03 | MR ---
EXAMINATION TYPE: MR knee LT wo con DATE OF EXAM: 11/28/2017 COMPARISON: NONE HISTORY: 42-year-old male with left knee pain, effusion TECHNIQUE: Multiplanar, multisequence imaging of the left knee is performed without IV contrast. FINDINGS: The ACL and PCL are intact. MCL and LCL complex are intact. Obliquely oriented signal within the body of the lateral meniscus does not clearly contact the articu lar surfaces. There is moderate irregular cartilage loss along the mid weightbearing aspect of the la teral femoral condyle, coronal image 23. Undersurface signal along the posterior horn of the medial meniscus, sagittal image 28 suggests a tin y tear. Mild diffuse thinning of medial compartment articular cartilage. More extensive moderate in deep irregular cartilage loss along the medial and lateral patellar facets , especially the lateral patellar facet and moderate thickness focal cartilage loss along the trochle ar groove. Underlying subchondral cystic change and reactive marrow signal changes are present within the patella along with marginal spurring. Extensor mechanism is intact. Nonspecific mild prepatellar soft tissue swelling. There is a moderate knee joint effusion without significant Hallman's cyst. Loose bodies in the infrapa tellar space measure up to 1.4 and 1.1 cm, sagittal image 21 and axial image 16. Additional posterior loose body measures 9 mm, sagittal image 22. Normal popliteal artery anatomy and muscle bulk. No suspicious bone marrow replacement. IMPRESSION: 1. Tiny undersurface tear posterior horn medial meniscus. 2. 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 3. Degenerative signal in the body of the lateral meniscus without clear extension to either articula r surface to indicate a lateral meniscal tear at this time. 4. Moderate focal irregular cartilage loss mid weightbearing aspect of the lateral femoral condyle. 5. Moderate knee joint effusion.
== END | disposition home or self-care (01) ==
LOC: RADMRIMAIN 12:03
PROVIDERS: ATTEND Orthopaedic Surgery Sports Medicine
DX: S83.242A Other tear of medial meniscus, current injury, left knee, initial encounter (principal); M17.12 Unilateral primary osteoarthritis, left knee

== ENCOUNTER 2018-06-22 13:08 | Emergency (ER) | payer OTHER ==
[2018-06-22 13:15] VITALS: RESP 20; TEMP 98.4
--- NOTE | 2018-06-22 13:38 | ED ---
General Adult HPI - General Chief complaint: Psychiatric Symptoms Stated complaint: mental health Time Seen by Provider: 06/22/18 13:18 Source: patient, RN notes reviewed, old records reviewed Mode of arrival: ambulatory Limitations: no limitations - History of Present Illness Initial comments: 43-year-old male presenting for evaluation of suicidal ideation and depression. Patient states he has had increasing hopelessness and thoughts of committing suicide. Patient is currently homeless. He denies any specific plan. Denies any ingestion or self-harm today. Denies alcohol abuse. Patient has been on anti-depressant medications for approximately one year. Symptoms have been present for the past several weeks. - Related Data Home Medications Medication Instructions Recorded Confirmed Benazepril HCl 40 mg PO DAILY 06/07/17 06/22/18 Cyclobenzaprine [Flexeril] 10 mg PO HS PRN 06/07/17 06/22/18 Ergocalciferol (Vitamin D2) 50,000 unit PO Q30D 06/07/17 06/22/18 [Vitamin D2] Furosemide [Lasix] 40 mg PO DAILY 06/07/17 06/22/18 Labetalol [Trandate] 200 mg PO DAILY 06/07/17 06/22/18 Meclizine [Antivert] 12.5 mg PO QID PRN 06/07/17 06/22/18 Potassium Chloride [Klor-Con 10 meq PO DAILY 06/07/17 06/22/18 Sprinkle] Aspirin EC [Ecotrin Low Dose] 81 mg PO DAILY 06/22/18 06/22/18 Citalopram Hydrobromide 20 mg PO DAILY 06/22/18 06/22/18 [Citalopram HBr] Pregabalin [Lyrica] 50 mg PO DAILY 06/22/18 06/22/18 amLODIPine [Norvasc] 10 mg PO DAILY 06/22/18 06/22/18 hydrALAZINE HCL [Apresoline] 50 mg PO TID 06/22/18 06/22/18 Allergies Allergy/AdvReac Type Severity Reaction Status Date / Time No Known Allergies Allergy Verified 06/22/18 13:50 Review of Systems ROS Statement: Those systems with pertinent positive or pertinent negative responses have been documented in the HPI. ROS Other: All systems not noted in ROS Statement are negative. Past Medical History Past Medical History: Hypertension Additional Past Medical History / Comment(s): back pain - chronic pain, bulging discs History of Any Multi-Drug Resistant Organisms: None Reported Past Surgical History: No Surgical Hx Reported Additional Past Surgical History / Comment(s): epidural injections to back Past Psychological History: Depression Smoking Status: Current every day smoker Past Alcohol Use History: None Reported Past Drug Use History: Marijuana - Past Family History Mother Family Medical History: Cancer Additional Family Medical History / Comment(s): breast Father Family Medical History: Cancer Additional Family Medical History / Comment(s): lung General Exam Limitations: no limitations General appearance: alert, in no apparent distress Head exam: Present: atraumatic, normocephalic Eye exam: Present: normal appearance, PERRL ENT exam: Present: normal exam Neck exam: Present: normal inspection. Absent: tenderness, meningismus Respiratory exam: Present: normal lung sounds bilaterally. Absent: respiratory distress, wheezes Cardiovascular Exam: Present: regular rate, normal rhythm GI/Abdominal exam: Present: soft. Absent: distended, tenderness Extremities exam: Present: normal inspection, full ROM Neurological exam: Present: alert, oriented X3, CN II-XII intact. Absent: motor sensory deficit Psychiatric exam: Present: depressed, suicidal ideation Skin exam: Present: warm, dry, intact. Absent: cyanosis, diaphoretic Course Vital Signs 06/22/18 13:11 Temperature 98.4 F Pulse Rate 107 H Respiratory 20 Rate Blood Pressure 139/92 O2 Sat by Pulse 98 Oximetry Medical Decision Making - Medical Decision Making 43-year-old male presenting with depression and suicidal ideation. Patient is medically cleared in the emergency department. He is evaluated by EPS. After discussion with EPS nurse, patient is no longer suicidal, he does still feel depressed. He was given outpatient follow-up with [facility] tomorrow. He is also provided lodging at a local homeless [facility]. He is agreeable with discharge. - Lab Data Lab Results 06/22/18 Range/Units 14:00 Urine Opiates Screen Not Detected (NotDetected) Ur Oxycodone Screen Not Detected (NotDetected) Urine Methadone Screen Not Detected (NotDetected) Ur Propoxyphene Screen Not Detected (NotDetected) Ur Barbiturates Screen Not Detected (NotDetected) U Tricyclic Antidepress Not Detected (NotDetected) Ur Phencyclidine Scrn Not Detected (NotDetected) Ur Amphetamines Screen Not Detected (NotDetected) U Methamphetamines Scrn Not Detected (NotDetected) U Benzodiazepines Scrn Not Detected (NotDetected) Urine Cocaine Screen Not Detected (NotDetected) U Marijuana (THC) Screen Detected H (NotDetected) Disposition Clinical Impression: Depression Disposition: HOME SELF-CARE Condition: Good Instructions: Depression (ED) Additional Instructions: Please follow up with community mental health. Return with worsening or changing symptoms. Is patient prescribed a controlled substance at d/c from ED?: No Referrals: Radha Acuna MD [Primary Care Provider] - 1-2 days Time of Disposition: 15:15
[2018-06-22 14:50] LABS: Amphetamine Screen,Urine Not Detected (NotDetected); Barbiturate Screen,Urine Not Detected (NotDetected); Benzodiazepines Screen,Urine Not Detected (NotDetected); Cocaine Screen,Urine Not Detected (NotDetected); Methadone Screen, Urine Not Detected (NotDetected); Opiate Screen,Urine Not Detected (NotDetected); Oxycodone Screen, Urine Not Detected (NotDetected); Phencyclidine Screen,Urine Not Detected (NotDetected); Tricyclic Antidepressant,Urine Not Detected (NotDetected); Urn Cannabinoid Scrn Detected (NotDetected)
[2018-06-22 15:28] VITALS: BP 132/88; PULSE 84
== END 2018-06-22 15:53 | disposition home or self-care (01) ==
LOC: EC 13:08
DX: F32.9 Major depressive disorder, single episode, unspecified (principal); R45.851 Suicidal ideations; I10 Essential (primary) hypertension; F17.200 Nicotine dependence, unspecified, uncomplicated; Z59.0 Homelessness; Z79.82 Long term (current) use of aspirin; Z79.899 Other long term (current) drug therapy
CPT/HCPCS: 80306; 82075; 99285

== ENCOUNTER → 2018-07-18 | Outpatient (CLI) | payer OTHER | END | disposition home or self-care (01) | LOC: LABWHC1 13:03 | PROVIDERS: ATTEND Orthopaedic Surgery | DX: Z01.818 Encounter for other preprocedural examination (principal) | CPT/HCPCS: 93005 ==